=== PATIENT | male | born 1960 | race Caucasian/White ===

== ENCOUNTER → 2016-09-17 | Outpatient (CLI) | payer BC ==
[~2016-09-17] MED LIST: ACET-1256 PO; CALC500C70 PO; CLON1TAB3 PO; DIPH-416 PO; DIPH25CA65 PO; DOCU100C31 PO; DXM/4 PO; GABA800T PO; LEVO137T3 PO; MELATAB2 PO; MULT-506 PO; NAPR-1168 PO; ONDA8TAB6 PO; OXYC-57 PO; OXYC10SO PO; OXYC40TA34 PO; SENN-61 PO; TRN400 PO; VITA400C15 PO
--- NOTE | 2016-09-17 10:42 | Discharge Instructions ---
Discharge Instructions Procedure Procedure Date: Sep 17, 2016. Reason for visit: Hx Parotid Ca, Us Shows Thyroid Nodule. Discharge Discharge Date: Sep 17, 2016. Discharge Diagnosis: Left thyroid nodule Instructions Activity Recommendations: No limitations Return to School/Work: no limitations Recommended Home Diet: Resume Previous Diet Provider Instructions: Ultrasound guided fine-needle aspiration of an ill-defined left lobe thyroid nodule is performed with 4 passes utilizing 25-gauge needles. Specimens were reviewed by the pathologist in real-time and deemed adequate for diagnosis. The procedure was well tolerated and without immediate complication. Allergies Coded Allergies: No Known Allergies (Unverified , 09/29/13) Howard Holder Recommendations: Call your doctor if: * Temperature above 101 degrees * Pain not relieved by pain medicine ordered * There is increased drainage or redness from any incision * You have any unanswered questions or concerns. Your Doctors Instructions noted above were prepared by provider Jacques Padilla. Patient Signature Section: Patient Instructions Signature Page Eran Stuart Patient (or Guardian) Signature/Date: I have read and understand the instructions given to me by my caregivers. Caregiver/RN/Doctor Signature/Date: The above-named patient and/or guardian has received patient instructions on this date. + Original Patient Signature Page (only) stays with chart. Please make copy for patient.
--- NOTE | 2016-09-17 11:13 | DIAGNOSTIC IMAGING REPORT ---
ULTRASOUND-GUIDED FINE-NEEDLE ASPIRATION THYROID CLINICAL HISTORY: Left thyroid nodule, hyperfunctioning by PET. History of salivary gland carcinoma. COMPARISON STUDY: Thyroid ultrasound dated 09/09/2016. PET/CT dated 08/19/2016. PROCEDURE: The risks, benefits, and alternatives to the procedure were discussed with the patient. Written informed consent was obtained. The patient was placed supine in ultrasound, and the heterogeneous and ill-defined 2.2 x 1.4 x 2.1 cm nodule in the left lobe of the thyroid was localized by ultrasound and selected for fine needle aspiration. The left neck was prepped and draped in the usual sterile fashion. The nodule was aspirated under ultrasound guidance with 4 passes utilizing 25-gauge needles. Specimens were reviewed by the pathologist in real-time and deemed adequate for diagnosis. The patient tolerated the procedure well and left the department in satisfactory condition. IMPRESSION: Completed fine-needle aspiration of a left thyroid nodule as above. Electronically signed by: Jacques Padilla M.D. 09/17/2016 11:12 AM Dictated Date/Time: 09/17/2016 11:11 AM
== END | disposition home or self-care (01) ==
LOC: C.ULTR 09:38
PROVIDERS: ATTEND Internal Medicine Hematology
DX: C07 Malignant neoplasm of parotid gland (principal); C73 Malignant neoplasm of thyroid gland; E04.1 Nontoxic single thyroid nodule

== ENCOUNTER → 2016-12-11 | Outpatient (CLI) | payer BC ==
[~2016-12-11] MED LIST changes: +GADAVIST IV PRN
--- NOTE | 2016-12-11 11:07 | DIAGNOSTIC IMAGING REPORT ---
MRI OF THE THORACIC SPINE WITHOUT A WITH GADOLINIUM CLINICAL HISTORY: Severe back pain. History of salivary gland carcinoma. COMPARISON STUDY: Outside PET/CT scan dated 08/19/2016 FINDINGS: The patient was scanned in the axial and sagittal planes, before and after the administration of 7 cc of intravenous Gadavist. There are foci of vertebral body marrow replacement at the T3, T9, T10, and T12 levels. The findings are consistent with multifocal metastatic disease. There is mild vertebral body expansion at the T12 level but significant canal compromise is not felt to be present. No focal spinal cord masses are visualized. Multiple pulmonary metastasis are suspected. IMPRESSION: 1. Suspected pulmonary metastasis 2. Foci of vertebral body marrow replacement to T3, T9, T10, and T12 levels, consistent with multifocal skeletal metastasis 3. No focal cord mass is identified 4. Mild vertebral body expansion secondary to tumor at the T12 level, but significant canal compromise is not felt to be present Electronically signed by: Ryan Ramsey M.D. 12/11/2016 11:06 AM Dictated Date/Time: 12/11/2016 10:58 AM
--- NOTE | 2016-12-11 12:04 | DIAGNOSTIC IMAGING REPORT ---
MRI OF THE LUMBAR SPINE COMBO CLINICAL HISTORY: Low back pain. COMPARISON STUDY: MRI of lumbar spine dated 06/27/2015. PET/CT dated 08/19/2016. TECHNIQUE: MRI of the lumbar spine is performed utilizing various T1 and T2-weighted sequences in the axial and sagittal planes. Contrast-enhanced sequences were acquired following the IV administration of 7 cc of Gadavist. The examination is degraded by motion artifact. FINDINGS: Lumbar spine: There is a mild superior endplate compression deformity of L2. No significant edema is identified, although this is new from 08/19/2016. Vertebral body height is otherwise maintained throughout the lumbar spine. Alignment is preserved. There is a moderate compression deformity of T12, also new from 08/19/2016. This is likely acute to subacute. There is evidence of extensive metastatic disease. There is extensive and abnormal marrow signal throughout the bony structures. There is abnormal enhancement seen involving T12, L2, L4, and L5. There was marked abnormal FDG activity within these vertebral bodies on the 08/19/2016 PET examination and this is consistent with metastatic disease. There is diminished signal within L1 and L3, possibly related to fatty replacement. This did not demonstrate significant postcontrast enhancement. Metastatic lesions are also identified within the spinous process of L4, the right transverse process and pedicle of L2, the left transverse process of L3, and the right transverse process of L5. Intervertebral discs: Degenerative disc desiccation and loss of height is seen throughout the lumbar spine. Loss of height is greatest at L2-L3 and L3-L4. Spinal cord and central canal: The visualized spinal cord is normal in morphology and signal intensity. The conus medullaris terminates at the level of L1. The nerve roots of the cauda equina are normal in morphology. There is abnormal enhancing soft tissue identified along the left lateral aspect of the thecal sac seen on axial postcontrast image 19. This causes mild compromise of the left aspect of the central canal. This measures up to 5 mm in thickness and is concerning for metastatic extension. A rind of abnormal enhancing soft tissue is also seen around the thecal sac at L5-S1. This encroaches on the central canal and measures up to 6 mm in thickness. This is more apparent than on the 06/27/2015 examination. L1-L2: Unremarkable. L2-L3: There is minimal posterior disc bulge. The central canal and neural foramina are patent. L3-L4: There is broad-based posterior disc bulge. In conjunction with hypertrophy of the ligamentum flavum this causes moderate central canal stenosis with a minimum AP diameter of 5 mm. There is bilateral symmetrical stenosis, left greater than right. This may impinge on the exiting left L3 and the transiting bilateral L4 nerve roots. L4-L5: There is broad-based posterior disc bulge with annular fissure. In conjunction with hypertrophy of the ligamentum flavum this causes moderate to severe central canal stenosis with a minimum AP diameter of 6 mm. There is effacement of the left aspect of the thecal sac secondary to enhancing soft tissue. There is bilateral subarticular stenosis with probable impingement on the transiting bilateral L5 and the exiting bilateral L4 nerve roots. L5-S1: There is no significant degenerative disc disease. There is moderate to severe central canal stenosis at this level secondary to enhancing soft tissue in the anterior epidural space. This is likely related to metastatic disease. This also violates the left neural foramen. The right neural foramen appears patent. The minimum AP canal diameter at this level measures 7 mm. Sacrum: Extensive metastatic disease is seen involving S1, S2, and S3. Metastatic disease is also seen involving the iliac wings bilaterally. There is likely a sacral insufficiency fracture involving S1. 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 Soft tissues: There is mild fatty atrophy of the paraspinous musculature. No retroperitoneal lymphadenopathy is seen. IMPRESSION: 1. There is a moderate compression deformity of T12 and a mild compression deformity of L2. These are new from previous and likely acute to subacute. 2. Extensive metastatic disease is identified involving the lumbosacral spine and visualized bony pelvis as above. This is likely similar to the 08/19/2016 PET examination when differences in modality are taken into account. 3. Abnormal enhancing soft tissue is seen along the left aspect of the thecal sac at L4-L5 and along the anterior aspect of the thecal sac at L5-S1. The appearance is highly concerning for extension of tumor and this causes some degree of central canal compromise. 4. Degenerative change as above. 5. Suspect an insufficiency fracture of S1. Dictated: 12/11/2016 11:16 AM Transcribed: 12/11/2016 12:04 PM [place] Electronically signed by: Jacques Padilla M.D. 12/11/2016 12:04 PM Dictated Date/Time: 12/11/2016 11:16 AM
== END | disposition home or self-care (01) ==
LOC: C.MRIBC 08:56
PROVIDERS: ATTEND Family Medicine
DX: C79.51 Secondary malignant neoplasm of bone (principal); M84.58XD Pathological fracture in neoplastic disease, other specified site, subsequent encounter for fracture with routine healing; M43.9 Deforming dorsopathy, unspecified